=== PATIENT | male | born 1980 | race Caucasian/White ===

== ENCOUNTER 2020-04-24 18:32 | Emergency (ER) | payer SELFPAY ==
[2020-04-24 18:38] VITALS: BP 114/63; PULSE 85; TEMP 98.7; BMI 22.3
[2020-04-24] MEDS ORDERED: DIPHTH,PERTUSS(ACELL),TET 0.5 ML DISP.SYRIN IM ONE ×2 (19:39→19:49)
[2020-04-24] MEDS ORDERED: AMOX TR/POT CLAV 875MG/125MG TABLETS (FP) PO ONE (20:21)
--- NOTE | 2020-04-24 20:26 | PDOC ---
History of Present Illness - General Chief Complaint: Laceration Stated Complaint: INJURY/LACERATION/R/MIDDLE FINGER Time Seen by Provider: 04/24/20 19:18 - History of Present Illness Initial Comments: 04/24/20 20:27 Patient is a 39-year-old male with a history of ulcerative colitis who presents to the ED with a right middle finger laceration that he sustained about 1 hour prior to arrival. The patient states he was walking his dog in the park when she ran quickly at something. He grabbed a cable leash that the dog was being walked on and sustained a laceration to his right middle finger, palmar aspect. He is unsure of his last tetanus booster. He states he immediately noticed the finger was bleeding. He denies any allergies to medications. Past History - Medical History Allergies/Adverse Reactions: Allergies Allergy/AdvReac Type Severity Reaction Status Date / Time No Known Allergies Allergy Verified 04/24/20 18:38 Home Medications: Ambulatory Orders Azathioprine [Azasan] 100 mg PO DAILY #30 tablet 09/07/15 Mesalamine [Lialda] 1.2 gm PO DAILY 11/26/15 Amoxicillin/Potassium Clav [Augmentin 875-125 Tablet] 1 each PO BID #10 tablet 04/24/20 Anemia: No Asthma: No CVA: No COPD: No CHF: No Dementia: No Diabetes: No GI Disorders: Yes (ULCERATIVE COLITIS) Disorders: No HTN: No Hypercholesterolemia: No Liver Disease: No Seizures: No Thyroid Disease: No - Surgical History Abdominal Surgery: No Appendectomy: No Cardiac Surgery: No Cholecystectomy: No Lung Surgery: No Neurologic Surgery: No Orthopedic Surgery: No - Psycho-Social/Smoking History Smoking History: Never smoked Have you smoked in the past 12 months: No Information on smoking cessation initiated: Yes - Substance Abuse Hx (Audit-C & DAST Scrn) How often the patient has a drink containing alcohol: Never Score: In Men: 4 or > Positive; In Women: 3 or > Positive: 0 Screen Result (Pos requires Nsg. Audit-10AR): Negative In the last yr the pt used illegal drug/Rx for NonMed reason: No Score: Yes response is considered Positive: 0 Screen Result (Positive result requires Nsg. DAST-10): Negative Review of Systems - Review of Systems Comments:: 04/24/20 20:28 - Review of Systems Able to Perform ROS?: Yes Constitutional: No: Fever, Chills, Loss of Appetite, Night Sweats, Weakness HEENTM: No: Eye Pain, Vision changes, Ear Pain, Throat Pain, Throat Swelling, Mouth Pain, Difficulty Swallowing Respiratory: No: Cough, Shortness of Breath, Wheezing, Sputum Production Cardiac (ROS): No: Chest Pain, Chest Tightness, Palpitations, Irregular Heart Beat, Edema ABD/GI: No: Nausea, Vomiting, Abdominal Pain, Diarrhea Musculoskeletal: No: Muscle Pain, Back Pain, Joint Pain, Muscle Weakness, Neck Pain Integumentary: No: Lesions, Rash; positive: Right middle finger laceration Neurological: No: Headache, Numbness, Tingling, Weakness, Speech Difficulties *Physical Exam - Vital Signs Last Vital Signs Temp Pulse Resp BP Pulse Ox 98.7 F 85 19 114/63 99 04/24/20 18:36 04/24/20 18:36 04/24/20 18:36 04/24/20 18:36 04/24/20 18:36 - Physical Exam 04/24/20 20:28 - Physical Exam General Appearance: Nourished, Appropriately Dressed, No Distress HEENT: EOMI, Normal Voice, Hearing Grossly Normal Neck: Supple, No Lymphadenopathy (R), No Lymphadenopathy (L), No Rigidity, No Decreased range of motion Respiratory/Chest: Lungs Clear, Normal Breath Sounds. No Respiratory Distress, No Accessory Muscle Use Cardiovascular: Regular Rhythm, Regular Rate, S1, S2 Musculoskeletal: Normal Inspection. No Decreased Range of Motion Extremity: Normal Capillary Refill, Normal Inspection Integumentary: Normal Color, Dry. No Rash; 2 cm laceration to the right middle finger palmar aspect over the PIP. The medial aspect of the wound has a thin flap that appears devitalized and slightly dusky. The remaining wound is gaping. There is no sign of foreign body. There is moderate active bleeding. No crepitus and no sign of infection. 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, Fully Oriented, Alert, Normal Mood/Affect, Normal Response Procedures - Laceration/Wound Repair Volar Hand 3rd digit Wound Length: to 2.5 cm Wound Explored: clean Wound's Depth, Shape: irregular, flap Irrigated w/ Saline: Yes Betadine Prep: Yes Anesthesia: 1% Lidocaine Amount of Anesthetic (ccs): 4 Wound Debrided: minimal Wound Repaired With: Sutures Suture Size/Type: 4:0, nylon Number of Sutures: 4 Layer Closure: No Sterile Dressing Applied: Yes Splint Applied: Yes ED Treatment Course - Medications Given in the ED: ED Medications Discontinued Medications Generic Name Dose Route Start Last Admin Trade Name Martinze PRN Reason Stop Dose Admin Diphtheria/Tetanus/Acell Pertussis 0.5 ml 04/24/20 19:39 04/24/20 19:48 Boostrix - IM 04/24/20 19:40 0.5 ml .ONCE ONE Administration Medical Decision Making - Medical Decision Making 04/24/20 20:22 Assessment: Patient is a 39-year-old male with a right middle finger laceration over the PIP on the palmar aspect of the hand. Plan: -Suture approximation performed on part of the wound and Steri-Strips placed on the medial aspect of the wound secondary to the medial aspect of the wound being a flap laceration that would devitalize with sutures -Tetanus given in the ED -1 dose of Augmentin given in the ED -Patient given wound care instructions and to return in 10 days for suture removal. He understands and agrees with this treatment plan he is stable for discharge. Discharge - Discharge Information Problems reviewed: Yes Clinical Impression/Diagnosis: Laceration of right middle finger Qualifiers: Encounter type: initial encounter Damage to nail status: without damage Foreign body presence: without foreign body Qualified Code(s): S61.212A - Laceration without foreign body of right middle finger without damage to nail, initial encounter Condition: Stable Disposition: HOME - Additional Discharge Information Prescriptions: Amoxicillin/Potassium Clav [Augmentin 875-125 Tablet] 1 each PO BID #10 tablet - Follow up/Referral - Patient Discharge Instructions Patient Printed Discharge Instructions: DI for Laceration Repair -- Simple Additional Instructions: Keep the wound clean and dry for roughly 48 hours. After 48 hours you can wash the wound once daily with warm water and soap. Do not soak the wound. You had 4 sutures placed and 3 Steri-Strips placed. The Steri-Strips (the tape) will fall off on its own. You must return in 10 days to have the sutures removed. Take the antibiotics as prescribed and complete the entire course. Return for any worsening symptoms such as increased pain, sutures coming out on their own, pus from the wound, increased pain or any other worsening symptoms. - Post Discharge Activity
[2020-04-24] MEDS ORDERED: AMOX TR/POT CLAV 875MG/125MG TABLETS (FP) ONE (20:28)
== END 2020-04-24 20:36 | disposition home or self-care (01) ==
LOC: JERFT 18:32
PROC: 0HQFXZZ Repair Right Hand Skin, External Approach (ICD-10-PCS; principal; 2020-04-24)
PROC: 3E0234Z Introduction of Serum, Toxoid and Vaccine into Muscle, Percutaneous Approach (ICD-10-PCS; 2020-04-24)
DX: S61.212A Laceration without foreign body of right middle finger without damage to nail, initial encounter (principal)
CPT/HCPCS: 90715; 99284-25

== ENCOUNTER 2020-04-30 14:15 | Emergency (ER) | payer SELFPAY ==
[2020-04-30 14:22] VITALS: BP 120/82; PULSE 70; TEMP 97.9; BMI 28.7
--- NOTE | 2020-04-30 14:37 | PDOC ---
History of Present Illness - General Chief Complaint: Pain Stated Complaint: FINGER SWOLLEN Time Seen by Provider: 04/30/20 14:23 History Source: Patient Exam Limitations: No Limitations - History of Present Illness Initial Comments: 04/30/20 14:31 39-year-old male past medical history of ulcerative colitis presenting to the ED complaining of finger swelling. Patient was seen here 5 days ago for right hand middle finger laceration which was repaired with sutures. Patient states that he finished his antibiotics but woke up this morning with finger swelling. Patient denies pain in the finger but has decreased range of motion secondary to the swelling. Pt otherwise denies: fevers, chills, syncope, lightheadedness, dizziness, headaches, neck pain, chest pain, shortness of breath, palpitations, back pain, abdominal pain, nausea, vomiting, diarrhea, constipation. Past History - Medical History Allergies/Adverse Reactions: Allergies Allergy/AdvReac Type Severity Reaction Status Date / Time No Known Allergies Allergy Verified 04/30/20 14:18 Home Medications: Ambulatory Orders Azathioprine [Azasan] 100 mg PO DAILY #30 tablet 09/07/15 Mesalamine [Lialda] 1.2 gm PO DAILY 11/26/15 Amoxicillin/Potassium Clav [Augmentin 875-125 Tablet] 1 each PO BID #10 tablet 04/24/20 Doxycycline Hyclate 100 mg PO BID 10 Days #20 capsule 04/30/20 Anemia: No Asthma: No CVA: No COPD: No CHF: No Dementia: No Diabetes: No GI Disorders: Yes (ULCERATIVE COLITIS) Disorders: No HTN: No Hypercholesterolemia: No Liver Disease: No Seizures: No Thyroid Disease: No - Surgical History Abdominal Surgery: No Appendectomy: No Cardiac Surgery: No Cholecystectomy: No Lung Surgery: No Neurologic Surgery: No Orthopedic Surgery: No - Immunization History Immunization Up to Date: Yes - Psycho-Social/Smoking History Smoking History: Never smoked Have you smoked in the past 12 months: No - Substance Abuse Hx (Audit-C & DAST Scrn) How often the patient has a drink containing alcohol: Never Score: In Men: 4 or > Positive; In Women: 3 or > Positive: 0 Screen Result (Pos requires Nsg. Audit-10AR): Negative In the last yr the pt used illegal drug/Rx for NonMed reason: No Score: Yes response is considered Positive: 0 Screen Result (Positive result requires Nsg. DAST-10): Negative *Physical Exam - Vital Signs Last Vital Signs Temp Pulse Resp BP Pulse Ox 97.9 F 70 18 120/82 100 04/30/20 14:19 04/30/20 14:19 04/30/20 14:19 04/30/20 14:19 04/30/20 14:19 - Physical Exam 04/30/20 14:Gen: AAOx 3, no acute distress, comfortable, no signs of respiratory distress HENT: atraumatic, normocephalic with no laceration or contusion. Nasal mucosa without erythema. Oropharynx without erythema or exudates. Mucous membranes moist. EYES: PERRL, EOM intact, conjunctiva pink NECK: supple; trachea midline; no JVD, no lymphadenopathy, or thyromegaly CV: RRR no murmurs, gallops, or rubs. CHEST: CTA b/l no wheezing, rales or rhonchi ABD: +BS/ND. no TTP; soft, no rebound, no guarding EXTREMITY: no cyanosis or erythema. 2+ dorsalis pedis, posterior tibial, and radial pulse. No pedal edema; no calf swelling or tenderness SKIN: no rash, warm and dry, no diaphoresis HEME: no purpura or ecchymosis NEURO: normal speech, CN II-XII intact, sensation intact, normal gait, no cerebellar deficits MS: 5/5 strength in all extremities, FROM intact in all extremities. R hand: swelling to 3rd digit with dec ROM 2/2 swelling, wound well approximated w/ sutures in place without erythema, sensation intact, <2 sec cap refill, negative kanavel signs Medical Decision Making - Medical Decision Making 04/30/20 14:35 39 year old male with R 3rd digit pain VSS afebrile Likely early infection Will start pt on Doxy 100 BID x 10 days Pt to follow up with Dr Jacob of hand surgery Pt to return to ED in 5 days of wound check and suture removal Pt appears well and is safe and stable for discharge with strict return precautions including signs and symptoms requring immediate return to the ED Supportive care instructions explained and given to pt. Reasons to return emergently to ER explained and given. Importance of follow up with PMD and other specialists as indicated stressed to pt. Pt verbalized understanding of instructions. Pt to follow up with PMD in 2 days. 04/30/20 14:38 Discharge - Discharge Information Problems reviewed: Yes Clinical Impression/Diagnosis: Finger infection Condition: Stable Disposition: HOME - Additional Discharge Information Prescriptions: Doxycycline Hyclate 100 mg PO BID 10 Days #20 capsule - Follow up/Referral Referrals: Luis Jacob MD [Staff Physician] - rAnav Martinez MD [Staff Physician] - Roscoe Luong DO [Staff Physician] - - Patient Discharge Instructions Patient Printed Discharge Instructions: DI for Cellulitis -- Adult Additional Instructions: Please follow up [facility] Dr Jacob without fail - Post Discharge Activity Work/Back to School Note: Back to Work
== END 2020-04-30 14:47 | disposition home or self-care (01) ==
LOC: JERFT 14:15
DX: L03.011 Cellulitis of right finger (principal)
CPT/HCPCS: 99282-25

== ENCOUNTER 2020-05-04 12:02 | Emergency (ER) | payer SELFPAY ==
[2020-05-04 12:06] VITALS: BP 110/62; PULSE 68; TEMP 97.3; BMI 27.8
--- NOTE | 2020-05-04 12:21 | PDOC ---
History of Present Illness - General Chief Complaint: Suture/Staple Removal(Here) Stated Complaint: REMOVAL OF STITCHES Time Seen by Provider: 05/04/20 12:14 - History of Present Illness Initial Comments: 05/04/20 12:19 39-year-old male presents for suture removal right middle finger from sutures placed 10 days ago no sequelae since suture placement. Past History - Medical History Allergies/Adverse Reactions: Allergies Allergy/AdvReac Type Severity Reaction Status Date / Time No Known Allergies Allergy Verified 05/04/20 12:04 Home Medications: Ambulatory Orders Azathioprine [Azasan] 100 mg PO DAILY #30 tablet 09/07/15 Mesalamine [Lialda] 1.2 gm PO DAILY 11/26/15 Amoxicillin/Potassium Clav [Augmentin 875-125 Tablet] 1 each PO BID #10 tablet 04/24/20 Doxycycline Hyclate 100 mg PO BID 10 Days #20 capsule 04/30/20 Anemia: No Asthma: No CVA: No COPD: No CHF: No Dementia: No Diabetes: No GI Disorders: Yes (ULCERATIVE COLITIS) Disorders: No HTN: No Hypercholesterolemia: No Liver Disease: No Seizures: No Thyroid Disease: No - Surgical History Abdominal Surgery: No Appendectomy: No Cardiac Surgery: No Cholecystectomy: No Lung Surgery: No Neurologic Surgery: No Orthopedic Surgery: No - Immunization History Immunization Up to Date: Yes - Psycho-Social/Smoking History Smoking History: Never smoked Have you smoked in the past 12 months: No - Substance Abuse Hx (Audit-C & DAST Scrn) How often the patient has a drink containing alcohol: Never Score: In Men: 4 or > Positive; In Women: 3 or > Positive: 0 Screen Result (Pos requires Nsg. Audit-10AR): Negative In the last yr the pt used illegal drug/Rx for NonMed reason: No Score: Yes response is considered Positive: 0 Screen Result (Positive result requires Nsg. 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 They are in agreement with the treatment plan all questions were answered to their satisfaction. Understanding for follow-up without fail was also conveyed to the patient. Again they are in agreement. Discharge - Discharge Information Problems reviewed: Yes Clinical Impression/Diagnosis: Visit for suture removal Condition: Stable Disposition: HOME - Admission No - Follow up/Referral Referrals: Luis Jacob MD [Staff Physician] - - Patient Discharge Instructions Additional Instructions: Please leave the area clean and dry for the next 48 hours. After 48 hours you may gently wash the area with soap and water and pat it dry and leave it open to air. Do not apply any ointment such as bacitracin or Neosporin. Without fail please follow-up with your primary care physician in 2 to 3 days for a wound check. Return to the emergency room for further issues. You may follow-up with orthopedic hand surgery in 1 to 2 days for wound check. - Post Discharge Activity
== END 2020-05-04 12:24 | disposition home or self-care (01) ==
LOC: JERFT 12:02
DX: Z48.02 Encounter for removal of sutures (principal)
CPT/HCPCS: 99281-25